=== PATIENT | female | born 1955 | race Caucasian/White ===

== ENCOUNTER 2017-07-30 07:40 | Emergency (ER) | payer BC ==
[~2017-07-30] VITALS: Ht 157.5 cm; Wt 84.5 kg
[~2017-07-30 07:40] MED LIST: BACTRIM,SEPT1 TABLET PO
[2017-07-30] MEDS ORDERED: ULTRAM50 MG PO (09:51)
[2017-07-30] MEDS ORDERED: TORADOL10 MG PO (09:56)
[2017-07-30 10:02] VITALS: BP 161/63
== END 2017-07-30 10:06 | disposition home or self-care (01) ==
LOC: EME 07:40
DX: S42.301A Unspecified fracture of shaft of humerus, right arm, initial encounter for closed fracture (principal); S40.011A Contusion of right shoulder, initial encounter; M79.672 Pain in left foot; W01.198A Fall on same level from slipping, tripping and stumbling with subsequent striking against other object, initial encounter; Z85.3 Personal history of malignant neoplasm of breast; Z88.0 Allergy status to penicillin; Z88.8 Allergy status to other drugs, medicaments and biological substances
CPT/HCPCS: 73030; 73060; 73630; 99281; 99284